=== PATIENT | male | born 1950 | race Caucasian/White ===

== ENCOUNTER 2018-02-21 09:57 | Day surgery (SDC) | payer MEDICARE, BC ==
[2018-02-21] MEDS ORDERED: Sodium Chloride 0.9% 20 ML ONE (10:21)
[2018-02-21 10:44] VITALS: BP 123/77
== END 2018-02-21 12:06 | disposition home or self-care (01) ==
LOC: ONC/OP 09:57
PROVIDERS: ATTEND Internal Medicine Hematology & Oncology
DX: C92.00 Acute myeloblastic leukemia, not having achieved remission (principal); Z79.899 Other long term (current) drug therapy
CPT/HCPCS: 94642; 96365; A4216; J7070

== ENCOUNTER 2018-03-14 09:41 | Day surgery (SDC) | payer MEDICARE, BC ==
[2018-03-14 10:02] VITALS: BP 135/67; TEMP 98.6
[2018-03-14] MEDS ORDERED: Sodium Chloride 0.9% 10 ML ONE (10:23)
== END 2018-03-14 12:03 | disposition home or self-care (01) ==
LOC: ONC/OP 09:41
PROVIDERS: ATTEND Internal Medicine Hematology & Oncology
DX: C92.00 Acute myeloblastic leukemia, not having achieved remission (principal); Z79.899 Other long term (current) drug therapy
CPT/HCPCS: 94642; 96365; A4216; J7070

== ENCOUNTER 2018-04-07 13:57 | Day surgery (SDC) | payer MEDICARE, BC ==
[2018-04-07 14:14] VITALS: BP 126/72; TEMP 98.7
== END 2018-04-07 16:05 | disposition home or self-care (01) ==
LOC: ONC/OP 13:57
PROVIDERS: ATTEND Internal Medicine Hematology & Oncology
DX: Z51.11 Encounter for antineoplastic chemotherapy (principal); C92.00 Acute myeloblastic leukemia, not having achieved remission
CPT/HCPCS: 96365; J7070

== ENCOUNTER 2018-04-23 08:39 | Outpatient (CLI) | payer MEDICARE, BC ==
--- NOTE | 2018-04-23 11:08 | MRI ---
MRI OF THE LEFT SHOULDER: Date: 04/23/18 PROVIDED CLINICAL HISTORY: Left shoulder pain. FINDINGS: Evaluation is limited due to patient motion. There is full thickness, probably full width, retracted tearing of the supraspinatus tendon with retr action to the level of the acromion. There is high grade partial thickness undersurface tearing invol ving the majority of the width of the subscapularis tendon fibers. Teres minor tendon appears intact. Partial thickness undersurface tearing involving the insertional fibers of the infraspinatus tendon anteriorly is noted. The long head biceps tendon is suboptimally evaluated on the basis of this exami nation in terms of its integrity. It appears probably normally located within the bicipital groove. T he glenoid labrum and glenohumeral articular cartilage are suboptimally evaluated on the basis of thi s study. Increased signal in the region of the superior labrum could reflect SLAP tear. The amount of fluid within the glenohumeral joint appears physiologic. There is signal alteration involving the deltoid muscle compatible with muscular strain. There is par tial thickness tearing involving the deltoid muscle associated with prominent tendinous attachment to the lateral aspect of the acromion. Acromioclavicular joint osteoarthrosis is demonstrated with mild mass effect upon the subjacent supra spinatus. Mild supraspinatus, infraspinatus, and subscapularis muscular volume loss is seen without f atty infiltration. Prominent red marrow reconversion changes are seen in the proximal humerus. IMPRESSION: 1. Limited study due to patient motion. 2. Tears of the subscapularis, supraspinatus, and infraspinatus as described above. 3. Possible SLAP tear. 4. Muscular strain involving deltoid muscle and partial thickness tearing associated with prominent tendinous attachment of the central aspects of the deltoid muscle to the acromion. POS: [facility]
== END 2018-04-23 08:40 | disposition home or self-care (01) ==
LOC: TBSIIMAG 08:39
PROVIDERS: ATTEND Family Medicine
DX: M24.812 Other specific joint derangements of left shoulder, not elsewhere classified (principal); M75.102 Unspecified rotator cuff tear or rupture of left shoulder, not specified as traumatic; S46.912A Strain of unspecified muscle, fascia and tendon at shoulder and upper arm level, left arm, initial encounter

== ENCOUNTER 2018-04-28 14:00 | Day surgery (SDC) | payer MEDICARE, BC ==
[2018-04-28] MEDS ORDERED: Sodium Chloride 0.9% 20 ML ONE (14:12)
[2018-04-28 14:40] VITALS: BP 121/61; TEMP 97.7
== END 2018-04-28 15:37 | disposition home or self-care (01) ==
LOC: ONC/OP 14:00
PROVIDERS: ATTEND Internal Medicine Hematology & Oncology
DX: C92.00 Acute myeloblastic leukemia, not having achieved remission (principal)
CPT/HCPCS: 96365; A4216; J7070

== ENCOUNTER 2018-05-19 14:11 | Day surgery (SDC) | payer MEDICARE, BC ==
[2018-05-19] MEDS ORDERED: SODIUM CHLORIDE 0.9% IVPB SCH (14:30)
[2018-05-19] MEDS ORDERED: PENTAMIDINE IVPB SCH (14:30)
[2018-05-19 14:34] VITALS: BP 151/71; TEMP 98
== END 2018-05-19 16:43 | disposition home or self-care (01) ==
LOC: ONC/OP 14:11
PROVIDERS: ATTEND Internal Medicine Hematology & Oncology
DX: C92.00 Acute myeloblastic leukemia, not having achieved remission (principal); Z79.899 Other long term (current) drug therapy
CPT/HCPCS: 96365; J7050

== ENCOUNTER 2018-06-09 13:42 | Day surgery (SDC) | payer MEDICARE, BC ==
[2018-06-09] MEDS ORDERED: Sodium Chloride 0.9% 20 ML ONE (15:02)
== END 2018-06-09 17:04 | disposition home or self-care (01) ==
LOC: ONC/OP 13:42
PROVIDERS: ATTEND Internal Medicine Hematology & Oncology
DX: C92.00 Acute myeloblastic leukemia, not having achieved remission (principal); Z79.899 Other long term (current) drug therapy
CPT/HCPCS: 96365; A4216; J7070

== ENCOUNTER 2018-06-30 14:07 | Day surgery (SDC) | payer MEDICARE, BC ==
[2018-06-30 14:15] VITALS: BP 134/63; TEMP 98.1
== END 2018-06-30 16:23 | disposition home or self-care (01) ==
LOC: ONC/OP 14:07
PROVIDERS: ATTEND Internal Medicine Hematology & Oncology
DX: C92.00 Acute myeloblastic leukemia, not having achieved remission (principal); Z79.899 Other long term (current) drug therapy
CPT/HCPCS: 96365; J7070

== ENCOUNTER 2018-07-21 14:09 | Day surgery (SDC) | payer MEDICARE, BC ==
[2018-07-21 14:29] VITALS: BP 136/79
[2018-07-21] MEDS ORDERED: Sodium Chloride 0.9% 10 ML ONE (14:32)
== END 2018-07-21 16:33 | disposition home or self-care (01) ==
LOC: ONC/OP 14:09
PROVIDERS: ATTEND Internal Medicine Hematology & Oncology
DX: C92.00 Acute myeloblastic leukemia, not having achieved remission (principal)
CPT/HCPCS: 96365; J7070

== ENCOUNTER 2018-08-11 13:27 | Day surgery (SDC) | payer MEDICARE, BC ==
[2018-08-11 13:38] VITALS: BP 145/75; TEMP 97.6
== END 2018-08-11 15:21 | disposition home or self-care (01) ==
LOC: ONC/OP 13:27
PROVIDERS: ATTEND Internal Medicine Hematology & Oncology
DX: C92.00 Acute myeloblastic leukemia, not having achieved remission (principal)
CPT/HCPCS: 96365; J7070

== ENCOUNTER 2018-09-08 13:51 | Day surgery (SDC) | payer MEDICARE, BC ==
[2018-09-08 14:25] VITALS: BP 165/79; TEMP 98.1
== END 2018-09-08 16:01 | disposition home or self-care (01) ==
LOC: ONC/OP 13:51
PROVIDERS: ATTEND Internal Medicine Hematology & Oncology
DX: C92.00 Acute myeloblastic leukemia, not having achieved remission (principal); Z79.899 Other long term (current) drug therapy
CPT/HCPCS: 96365; J7070

== ENCOUNTER → 2018-10-06 | Day surgery (SDC) | payer MEDICARE, BC ==
[~2018-10-06] MED LIST: Sodium Chloride 0.9% 20 ML ONE
[2018-10-06 14:58] VITALS: BP 129/62; TEMP 98.7
== END ==
LOC: ONC/OP 14:12
PROVIDERS: ATTEND Internal Medicine Hematology & Oncology
DX: C92.00 Acute myeloblastic leukemia, not having achieved remission (principal); Z79.899 Other long term (current) drug therapy
CPT/HCPCS: 94642; 96365; J7070

== ENCOUNTER 2018-10-27 00:16 | Day surgery (SDC) | payer MEDICARE, BC ==
[2018-10-27 14:03] VITALS: BP 119/65; TEMP 98.5
[2018-10-27] MEDS ORDERED: Sodium Chloride 0.9% 20 ML ONE (15:01)
== END 2018-10-27 15:42 | disposition home or self-care (01) ==
LOC: ONC/OP 00:16
PROVIDERS: ATTEND Internal Medicine Hematology & Oncology
DX: C92.00 Acute myeloblastic leukemia, not having achieved remission (principal); Z79.899 Other long term (current) drug therapy
CPT/HCPCS: 96365; J7070

== ENCOUNTER 2018-11-07 20:39 | Emergency (ER) | payer MEDICARE, BC | END 2018-11-07 21:23 | disposition home or self-care (01) | LOC: SCSER 20:39 | DX: J18.1 Lobar pneumonia, unspecified organism (principal); E10.9 Type 1 diabetes mellitus without complications; I10 Essential (primary) hypertension; E78.5 Hyperlipidemia, unspecified; Z79.899 Other long term (current) drug therapy | CPT/HCPCS: 99283 ==

== ENCOUNTER 2018-11-17 13:44 | Day surgery (SDC) | payer MEDICARE, BC ==
[2018-11-17 14:33] VITALS: BP 120/67; TEMP 97.9
[2018-11-17] MEDS ORDERED: Prevnar 13-Val Conj/PF 0.5 ML SYRINGE IM ONE (14:45)
== END 2018-11-17 15:32 | disposition home or self-care (01) ==
LOC: ONC/OP 13:44
PROVIDERS: ATTEND Internal Medicine Hematology & Oncology
DX: C92.00 Acute myeloblastic leukemia, not having achieved remission (principal)
CPT/HCPCS: 96365; J7070

== ENCOUNTER → 2018-12-08 | Day surgery (SDC) | payer MEDICARE, BC | LOC: ONC/OP 14:09 | PROVIDERS: ATTEND Internal Medicine Hematology & Oncology | DX: C92.00 Acute myeloblastic leukemia, not having achieved remission (principal); Z79.899 Other long term (current) drug therapy | CPT/HCPCS: 94642; 96365; J7070 ==

== ENCOUNTER 2018-12-31 14:06 | Day surgery (SDC) | payer MEDICARE, BC ==
[2018-12-31] MEDS ORDERED: Sodium Chloride 0.9% 20 ML ONE (14:14)
[2018-12-31 14:32] VITALS: BP 138/71; TEMP 97.7
== END 2018-12-31 15:46 | disposition home or self-care (01) ==
LOC: ONC/OP 14:06
PROVIDERS: ATTEND Internal Medicine Hematology & Oncology
DX: C92.00 Acute myeloblastic leukemia, not having achieved remission (principal)
CPT/HCPCS: 96365; J7070

== ENCOUNTER 2019-01-19 13:27 | Day surgery (SDC) | payer MEDICARE, BC ==
[2019-01-19] MEDS ORDERED: Sodium Chloride 0.9% 20 ML ONE (14:00)
[2019-01-19 14:04] VITALS: BP 149/70; TEMP 98
== END 2019-01-19 15:22 | disposition home or self-care (01) ==
LOC: ONC/OP 13:27
PROVIDERS: ATTEND Internal Medicine Hematology & Oncology
DX: C92.00 Acute myeloblastic leukemia, not having achieved remission (principal)
CPT/HCPCS: 80053; 80197; 82248; 83615; 83735; 84100; 84550; 87497; 96365; J7070

== ENCOUNTER 2019-02-09 14:07 | Day surgery (SDC) | payer MEDICARE, BC ==
[2019-02-09 16:27] VITALS: BP 144/74; TEMP 98.6
== END 2019-02-09 16:27 | disposition home or self-care (01) ==
LOC: ONC/OP 14:07
PROVIDERS: ATTEND Internal Medicine Hematology & Oncology
DX: C92.00 Acute myeloblastic leukemia, not having achieved remission (principal)
CPT/HCPCS: 96365; J7070

== ENCOUNTER 2019-03-02 14:04 | Day surgery (SDC) | payer MEDICARE, BC ==
[2019-03-02 15:46] VITALS: BP 153/77; TEMP 98.3
== END 2019-03-02 16:28 | disposition home or self-care (01) ==
LOC: ONC/OP 14:04
PROVIDERS: ATTEND Internal Medicine Hematology & Oncology
DX: C92.00 Acute myeloblastic leukemia, not having achieved remission (principal)
CPT/HCPCS: 96365; J7070

== ENCOUNTER 2019-03-23 13:45 | Day surgery (SDC) | payer MEDICARE, BC ==
[2019-03-23 15:16] VITALS: BP 128/72; TEMP 98.5
== END 2019-03-23 15:37 | disposition home or self-care (01) ==
LOC: ONC/OP 13:45
PROVIDERS: ATTEND Internal Medicine Hematology & Oncology
DX: C92.00 Acute myeloblastic leukemia, not having achieved remission (principal)
CPT/HCPCS: 96365; J7070

== ENCOUNTER 2019-04-13 10:31 | Day surgery (SDC) | payer MEDICARE, BC ==
[2019-04-13] MEDS ORDERED: Sodium Chloride 0.9% 20 ML ONE (10:36)
== END 2019-04-13 14:19 | disposition home or self-care (01) ==
LOC: ONC/OP 10:31
PROVIDERS: ATTEND Internal Medicine Hematology & Oncology
DX: C92.00 Acute myeloblastic leukemia, not having achieved remission (principal)
CPT/HCPCS: 96365; J7070

== ENCOUNTER 2019-09-08 10:04 | Outpatient (CLI) | payer OTHER | END 2019-09-08 10:05 | disposition home or self-care (01) | LOC: DTY/OP 10:04 | PROVIDERS: ATTEND Family Medicine | DX: E78.2 Mixed hyperlipidemia (principal) | CPT/HCPCS: 97802 ==

== ENCOUNTER 2023-06-05 09:54 | Outpatient (CLI) | payer MEDICARE, BC | END 2023-06-05 09:55 | disposition home or self-care (01) | LOC: BICRAD 09:54 | PROVIDERS: ATTEND Family Medicine | DX: M25.552 Pain in left hip (principal) ==